=== PATIENT | female | born 1995 | race Caucasian/White ===

== ENCOUNTER 2018-01-19 12:38 | Emergency (ER) | payer SELFPAY ==
[~2018-01-19] VITALS: Ht 154.9 cm; Wt 83.0 kg
[~2018-01-19 12:38] MED LIST: BACT800T5 PO; NEXP68IM AV
[2018-01-19 13:08] VITALS: BP 131/78; PULSE 60; RESP 18; TEMP 98.1; O2SAT 100
--- NOTE | 2018-01-19 15:14 | PD ---
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 The patient is Ab2 who had one normal vaginal delivery. The patient notes 4 days of vaginal bleeding, last menstrual cycle was December 11, 2017. The patient currently has a Mirena IUD in place. On Tuesday she developed bleeding the small amount of lower abdominal pain/ pelvic cramping that radiated to the back, normal per patient. However, the patient did not develop dysuria, frequency, and urgency. She denies any vaginal discharge currently, however, notes prior to her menstrual cycle she had a small amount of thick vaginal discharge which has resolved. The patient denies any history of sexually transmitted infection, BV, trichomonas, but has had a yeast infection in the past. She denies any nausea, vomiting, diarrhea, or change in bowels. She denies any associated fever, chills, or sweats. Symptoms are mild to moderate, no current alleviating or exacerbating factors. PFSH Past Medical History Diminished Hearing: No Integumentary: Yes (HIVES) Immunizations Current: Yes ?: Not LMP: 12/11/17 Past Surgical History Joint Replacement: No Social History Alcohol Use: No Tobacco Use: No Substance Use: No Allergies-Medications (Allergen,Severity, Reaction): Coded Allergies: chicken derived (Unverified Allergy, Severe, Hives, 01/19/18) ibuprofen (Unverified Allergy, Intermediate, 01/19/18) milk (Unverified Allergy, Mild, 01/19/18) peanut (Unverified Allergy, Mild, 01/19/18) Reported Meds & Prescriptions Reported Meds & Active Scripts Active No Active Prescriptions or Reported Medications Review of Systems Except as stated in HPI: all other systems reviewed are Neg General / Constitutional: No: Fever Gastrointestinal: No: Nausea, Vomiting, Diarrhea, Abdominal Pain Genitourinary: Positive: Urgency, Frequency, Dysuria, Pelvic Pain (A Tuesday which does resolve), Discharge, Vaginal Bleeding, No: Flank Pain Skin: No Rash Physical Exam Narrative GENERAL: Awake, alert, pleasant 22-year-old female who appears her stated age and is in no acute respiratory distress. SKIN: Focused skin assessment warm/dry. HEAD: Atraumatic. Normocephalic. EYES: No injection or drainage. NECK: Trachea midline. No JVD. GASTROINTESTINAL: Abdomen soft, non-tender, nondistended. No rebound tenderness. Back: No CVA tenderness. Genitourinary: The exam was performed in the presence of a female nurse. External examination reveals no rashes or lesions. Speculum examination reveals blood in the vaginal vault, dark, no large clots noted. Cervix is closed, however, IUD cannot be visualized with blood in the vaginal vault. MUSCULOSKELETAL: No obvious deformities. No clubbing. No cyanosis. No edema. NEUROLOGICAL: Awake and alert. No obvious cranial nerve deficits. Motor grossly within normal limits. Normal speech. PSYCHIATRIC: Appropriate mood and affect; insight and judgment normal. Data Data Last Documented VS Vital Signs Date Time Temp Pulse Resp B/P (MAP) Pulse Ox O2 Delivery O2 Flow Rate FiO2 01/19/18 13:08 98.1 60 18 131/78 (95) 100 Orders Orders Ed Urine Pregnancytest Poc (01/19/18 14:59) Gc And Chlamydia Pcr (01/19/18 15:06) Wet Prep Profile (01/19/18 15:06) Urinalysis - C+S If Indicated (01/19/18 15:06) Urine Culture (01/19/18 15:25) Labs Laboratory Tests Test 01/19/18 15:25 Urine Color YELLOW Urine Turbidity CLEAR Urine pH 5.5 Urine Specific [place] LESS/EQUAL 1.005 Urine Protein NEG mg/dL Urine Glucose (UA) NEG mg/dL Urine Ketones NEG mg/dL Urine Occult Blood MOD Urine Nitrite NEG Urine Bilirubin NEG Urine Urobilinogen 0.2 MG/DL Urine Leukocyte Esterase TRACE Urine RBC 4-9 /hpf Urine WBC 9-14 /hpf Urine WBC Clumps FEW Urine Squamous Epithelial Cells > 8 /hpf Urine Bacteria RARE /hpf Urine Mucus RARE /lpf Microscopic Urinalysis Comment CULTURE INDICATED Clue Cells (Wet Prep) NONE SEEN Vaginal Trichomonas (Wet Prep) NONE SEEN Vaginal Yeast (Wet Prep) NONE SEEN MDM Medical Decision Making Medical Screen Exam Complete: Yes Emergency Medical Condition: Yes Medical Record Reviewed: Yes Interpretation(s) Laboratory Tests Test 01/19/18 15:25 Urine Color YELLOW Urine Turbidity CLEAR Urine pH 5.5 Urine Specific [place] LESS/EQUAL 1.005 Urine Protein NEG mg/dL Urine Glucose (UA) NEG mg/dL Urine Ketones NEG mg/dL Urine Occult Blood MOD Urine Nitrite NEG Urine Bilirubin NEG Urine Urobilinogen 0.2 MG/DL Urine Leukocyte Esterase TRACE Urine RBC 4-9 /hpf Urine WBC 9-14 /hpf Urine WBC Clumps FEW Urine Squamous Epithelial Cells > 8 /hpf Urine Bacteria RARE /hpf Urine Mucus RARE /lpf Microscopic Urinalysis Comment CULTURE INDICATED Clue Cells (Wet Prep) NONE SEEN Vaginal Trichomonas (Wet Prep) NONE SEEN Vaginal Yeast (Wet Prep) NONE SEEN Differential Diagnosis Differential diagnosis includes abnormal uterine bleeding, , ectopic , UTI, vaginitis, cervicitis, PID, ovarian cyst. Narrative Course UA was sent to lab and bedside UA test was obtained, was negative. Pelvic exam was completed in the presence of a female nurse. Wet prep and gonorrhea/chlamydia PCR were sent to lab. Wet prep is negative. UA has WBCs and bacteria, will treat for UTI with Bactrim and Pyridium. The patient is advised to follow-up with her primary physician and would be provided a copy of her labs at discharge. Return if symptoms worsen or progress. Diagnosis Primary Impression: UTI (urinary tract infection) Qualified Codes: N30.01 - Acute cystitis with hematuria Additional Impression: Vaginal bleeding Patient Instructions: General Instructions Additional Instructions: Medications as directed. Please provide the patient a copy of her labs at discharge. Follow-up with your primary physician. Return if symptoms worsen or progress. Med/Other Pt SpecificInfo: Prescription(s) given Scripts Phenazopyridine (Pyridium) 100 Mg Tab 200 MG PO Q8H Y for DYSURIA for 2 Days, #12 TAB 0 Refills Prov: Zeeshan Jimenez MD 01/19/18 Sulfamethoxazole-Trimethoprim (Bactrim DS) 800-160 Mg Tab 1 TAB PO BID for Infection, #14 TAB 0 Refills Prov: Zeeshan Jimenez MD 01/19/18 Disposition: 01 DISCHARGE HOME Condition: Stable Zeeshan Jimenez MD Jan 19, 2018 15:14
[2018-01-19 15:36] LABS: BILIRUBIN, URINE NEG (NEG); BLOOD, URINE MOD (NEG); GLUCOSE,URINE NEG (NEG); KETONE, URINE NEG (NEG); NITRITE,URINE NEG (NEG); PH, URINE 5.5 (5.0-8.5); URINE COLOR YELLOW (YELLW/STRAW); URINE LEUKOCYTE ESTERASE TRACE (NEG)
[2018-01-19 15:47] LABS: BACTERIA, URINE RARE /hpf; MUCUS URINE RARE /lpf (OCC); SQUAMOUS EPITHELIAL CELL URINE > 8 /hpf (0-5); WHITE BLOOD CELL CLUMPS FEW
[2018-01-19] MEDS ORDERED: PHEN0.4T PO (15:57)
[2018-01-19] MEDS ORDERED: BACT800T5 PO (15:57)
== END 2018-01-19 16:07 | disposition home or self-care (01) ==
LOC: PHED 12:38
DX: N30.01 Acute cystitis with hematuria (principal); R30.0 Dysuria; R10.30 Lower abdominal pain, unspecified; N93.9 Abnormal uterine and vaginal bleeding, unspecified
CPT/HCPCS: 81001; 84703; 87086; 87210; 87491; 87591; 99284